=== PATIENT | male | born 1960 | race African-American/Black ===

== ENCOUNTER 2019-02-05 11:46 | Emergency (ER) | payer SELFPAY ==
[~2019-02-05] VITALS: Ht 175.3 cm; Wt 82.0 kg
[2019-02-05 12:30] VITALS: BP 127/74
[2019-02-05] MEDS ORDERED: KETOROLAC 60MG/2ML VIAL IM ONE (12:30)
[2019-02-05 12:43] LABS: HEMOGLOBIN. 14.9 g/dL (14.0-18.0); MEAN CORPUSCULAR HEMOGLOBIN 27.5 pg (28.0-32.0); MEAN CORPUSCULAR VOLUME 82.8 fL (80.0-94.0); MEAN PLATELET VOLUME 7.8 fl (7.4-10.4); PLATELET 199 x1000/uL (130-400); RED BLOOD CELL COUNT 5.43 mill/uL (4.7-6.1); RED CELL DISTRIBUTION WIDTH 14.2 % (11.6-14.6)
[2019-02-05 12:48] LABS: CHLORIDE 102 mEq/L (98-107)
[2019-02-05 12:53] LABS: CLARITY URINE CLEAR (CLEAR); COLOR URINE YELLOW (YELLOW); KETONES URINE TRACE (NEGATIVE); LEUKOCYTE ESTERASE URINE TRACE (NEGATIVE); NITRITE URINE NEGATIVE (NEGATIVE); OCCULT BLOOD URINE 1+ (NEGATIVE); PROTEIN URINE TRACE (NEGATIVE); SPECIFIC GRAVITY URINE 1.028 (1.005-1.030); UROBILINOGEN URINE 0.2 E.U./dL (0.2-1.0)
[2019-02-05] MEDS ORDERED: CEFTRIAXONE SODIUM 250 MG/VIAL IM ONE (13:45)
[2019-02-05 14:20] LABS: PLATELET ESTIMATE NORMAL
== END 2019-02-05 15:51 | disposition home or self-care (01) ==
LOC: ER 11:46
DX: N45.3 Epididymo-orchitis (principal)
CPT/HCPCS: 36415; 76870; 80048; 81003; 85025; 93976; 96372; 99284; J0696; J1885; Z7610